=== PATIENT | male | born 1955 | race African-American/Black ===

== ENCOUNTER 2017-11-01 12:20 | Emergency (ER) | payer MEDICAID ==
[~2017-11-01] VITALS: Ht 172.7 cm; Wt 68.0 kg
[~2017-11-01 12:20] MED LIST: CLON0.1T14 PO; DEX4 PO; PHEN100C4 PO; RISP05 PO; [UNRECOGNIZED DRUG - CODE] PO
[2017-11-01] MEDS ORDERED: SODIUM CHLORIDE 0.9% 1,000 ML IV ONE (12:48)
[2017-11-01 13:21] LABS: BASOPHILS % 0.9 % (0.0-2.0); EOSINOPHILS % 1.1 % (0.0-5.0); HEMATOCRIT. 25.9 % (42.0-52.0); HEMOGLOBIN. 8.8 g/dL (14.0-18.0); LYMPHOCYTES % 13.6 % (20.0-50.0); MEAN CORPUSCULAR HEMOGLOBIN 32.6 pg (28.0-32.0); MEAN CORPUSCULAR VOLUME 96.1 fL (80.0-94.0); MEAN PLATELET VOLUME 8.4 fl (7.4-10.4); MONOCYTES % 8.2 % (2.0-8.0); NEUTROPHILS % 76.2 % (40.0-76.0); PLATELET 278 x1000/uL (130-400); RED BLOOD CELL COUNT 2.69 mill/uL (4.7-6.1); RED CELL DISTRIBUTION WIDTH 14.5 % (11.6-14.6)
[2017-11-01 13:29] LABS: CHLORIDE 114 mEq/L (98-107); INR 1.1; PROTHROMBIN TIME 10.7 sec (9.1-11.1)
[2017-11-01 15:10] VITALS: BP 139/81
== END 2017-11-01 15:05 | disposition home or self-care (01) ==
LOC: ER 13:08
DX: M79.602 Pain in left arm (principal); E78.00 Pure hypercholesterolemia, unspecified; I10 Essential (primary) hypertension; I69.351 Hemiplegia and hemiparesis following cerebral infarction affecting right dominant side; Z88.6 Allergy status to analgesic agent
CPT/HCPCS: 36415; 71045; 73110; 80053; 83605; 85025; 85610; 87040; 93005; 99285; J7030

== ENCOUNTER 2018-10-26 14:56 | Emergency (ER) | payer MEDICAID ==
[~2018-10-26] VITALS: Ht 172.7 cm; Wt 75.0 kg
[2018-10-26 15:02] VITALS: BP 134/74
[2018-10-26] MEDS ORDERED: ACETAMINOPHEN 325MG TABLET PO ONE (16:15)
== END 2018-10-26 19:20 | disposition home or self-care (01) ==
LOC: ER 14:56
DX: M25.572 Pain in left ankle and joints of left foot (principal); F17.200 Nicotine dependence, unspecified, uncomplicated; I10 Essential (primary) hypertension; Z86.73 Personal history of transient ischemic attack (TIA), and cerebral infarction without residual deficits; Z79.899 Other long term (current) drug therapy; Z88.6 Allergy status to analgesic agent
CPT/HCPCS: 73610; 99283; Z7610